=== PATIENT | male | born 2000 | race Two or more races ===

== ENCOUNTER 2020-06-04 15:08 | Emergency (ER) | payer MEDICAID ==
[~2020-06-04] VITALS: Ht 162.6 cm; Wt 79.4 kg
[2020-06-04] MEDS ORDERED: FAMOTIDINE 20 MG/2 ML ONE (15:41)
[2020-06-04] MEDS ORDERED: ONDANSETRON 2MG/ML, 2ML ONE (15:41)
--- NOTE | 2020-06-04 15:50 | NUR ---
PT C/O N/V, GENERALIZED ABD PAIN X 2 DAYS. NO MEDS TAKEN FOR SX. DENIES URINARY SX. LAST BM: TODAY. LAST ORAL INTAKE: LAST NOC.
[2020-06-04 15:52] LABS: BASOPHILS # (AUTO) 0.18 x10^3/uL (0-0.3); BASOPHILS % (AUTO) 1 % (0-1); EOSINOPHILS # (AUTO) 0.06 x10^3/uL (0-0.8); EOSINOPHILS % (AUTO) 0 % (1-7); LYMPHOCYTES # (AUTO) 1.61 x10^3/uL (1-6.1); LYMPHOCYTES % (AUTO) 11 % (22-44); MD NO; MEAN CORPUSCULAR HGB CONC 33.5 g/dL (33.2-36.2); MEAN CORPUSCULAR VOLUME 92.4 fL (81-97); MEAN PLATELET VOLUME 8.8 fL (7.4-10.4); MONOCYTES # (AUTO) 0.54 x10^3/uL (0-1.4); MONOCYTES % (AUTO) 4 % (2-9); NEUTROPHILS # (AUTO) 12.79 x10^3/uL (1.8-8.0); NEUTROPHILS % (AUTO) 84 % (42-75); PLATELET COUNT 289 x10^3/uL (130-400); RED BLOOD COUNT 5.51 x10^6/uL (4.38-5.82); RED CELL DISTRIBUTION WIDTH 13.3 % (9.4-14.8)
[2020-06-04] MEDS ORDERED: MORPHINE SULFATE 4 MG/ML, 1ML IVPush PRN (16:00)
[2020-06-04] MEDS ORDERED: SODIUM CHLORIDE 0.9% 1,000ML IVBOLUS ONE (16:00)
[2020-06-04] MEDS ORDERED: ONDANSETRON 2MG/ML, 2ML IVPush ONE (16:00)
[2020-06-04] MEDS ORDERED: FAMOTIDINE 20 MG/2 ML IV ONE (16:00)
[2020-06-04 16:01] LABS: ALANINE AMINOTRANSFERASE 26 U/L (12-78); ANION GAP 9 mmol/L (5-15); CALCIUM 10.3 mg/dL (8.5-10.1); CHLORIDE 108 mmol/L (98-107)
[2020-06-04 16:04] LABS: ALKALINE PHOSPHATASE 136 U/L (45-117); TOTAL PROTEIN 8.9 g/dL (6.4-8.2)
--- NOTE | 2020-06-04 16:07 | NUR ---
NS BOLUS HUNG, ZOFRAN AND PEPCID GIVEN PER EMAR. PT NOW RESTING QUIETLY, DRY HEAVING HAS STOPPED.
--- NOTE | 2020-06-04 16:18 | NUR ---
PT DOZING, EASILY AWAKENED. O2 SAT UPPER 80'S - 92. OXYGEN 1LNC APPLIED. O2 SAT INCREASED TO UPPER 90'S. SIDE RAILS UP X2, CALL LIGHT W/IN REACH.
--- NOTE | 2020-06-04 16:19 | NUR ---
GARRISON MCCOY AT BS. PT REPORTS "DISCOMFORT", DENIES PAIN.
[2020-06-04] MEDS ORDERED: OMNIPAQUE 350 MG/ML, 100ML BOTTLE ONE (17:04)
[2020-06-04] MEDS ORDERED: MORPHINE SULFATE 4 MG/ML, 1ML ONE (17:27)
--- NOTE | 2020-06-04 17:30 | NUR ---
TASK RN: PT RESTING ON GURNEY. VSS. PT STATES PAIN 10/10 IN ABDOMEN. PT MEDICATED PER JAN. UA COLLECTED, LABELED, AND SENT TO LAB.
--- NOTE | 2020-06-04 17:33 | NUR ---
TASK RN: PT MEDICATED FOR PAIN AND STARTED HAVING INCREASED VOMITING. ERP NOTIFIED. AWAITING NEW ORDERS.
[2020-06-04] MEDS ORDERED: METOCLOPRAMIDE 5 MG/ML, 2ML ONE (17:36)
[2020-06-04 17:40] LABS: MICROSCOPIC NOT IND
[2020-06-04] MEDS ORDERED: METOCLOPRAMIDE 5 MG/ML, 2ML IVPush ONE (18:00)
[2020-06-04 18:23] VITALS: BP 103/56
--- NOTE | 2020-06-04 18:23 | NUR ---
PT DOZING W/ SIDE RAILS UP X2; EASILY AWAKENED. DENIES PAIN, CURRENTLY.
== END 2020-06-04 19:02 | disposition home or self-care (01) ==
LOC: ED 18:50
DX: R11.2 Nausea with vomiting, unspecified (principal); R10.13 Epigastric pain; R10.30 Lower abdominal pain, unspecified; R10.31 Right lower quadrant pain
CPT/HCPCS: 36415; 74177; 80053; 81003; 83690; 85025; 96361; 96374; 96375; 99285; J2270; J2405; J2765; J3490; J7030; Q9967

== ENCOUNTER 2020-06-06 05:06 | Emergency (ER) | payer MEDICAID ==
[~2020-06-06] VITALS: Ht 162.6 cm; Wt 79.2 kg
--- NOTE | 2020-06-06 05:19 | NUR ---
PT REPORTS NAUSEA, AND VOMITING AND ABD PAIN X3 DAYS, SEEN IN ER 2 DAYS AGO. PT REPORTS ABD PAIN HAS WORSEN.
[2020-06-06] MEDS ORDERED: FAMOTIDINE 20 MG/2 ML IV ONE (05:30)
[2020-06-06] MEDS ORDERED: SODIUM CHLORIDE FLUSH 10ML SYR IVF ONE (05:30)
[2020-06-06] MEDS ORDERED: SODIUM CHLORIDE 0.9% 1,000ML IVBOLUS ONE (05:30)
[2020-06-06] MEDS ORDERED: ZIPRASIDONE 20 MG INJ IM ONE ×4 (05:30→07:03)
[2020-06-06] MEDS ORDERED: ONDANSETRON 2MG/ML, 2ML IVPush ONE (05:30)
[2020-06-06] MEDS ORDERED: FAMOTIDINE 20 MG/2 ML ONE (05:31)
[2020-06-06] MEDS ORDERED: ONDANSETRON 2MG/ML, 2ML ONE (05:31)
--- NOTE | 2020-06-06 05:46 | NUR ---
PT MEDICATED PER MAR.
[2020-06-06 06:01] LABS: MEAN CORPUSCULAR HGB CONC 33.2 g/dL (33.2-36.2); MEAN CORPUSCULAR VOLUME 93.3 fL (81-97); MEAN PLATELET VOLUME 8.4 fL (7.4-10.4); PLATELET COUNT 277 x10^3/uL (130-400); RED BLOOD COUNT 5.18 x10^6/uL (4.38-5.82); RED CELL DISTRIBUTION WIDTH 13.3 % (9.4-14.8)
[2020-06-06 06:23] LABS: ALANINE AMINOTRANSFERASE 21 U/L (12-78); ALBUMIN 4.5 g/dL (3.4-5.0); ALKALINE PHOSPHATASE 114 U/L (45-117); ANION GAP 10 mmol/L (5-15); BILIRUBIN,TOTAL 1.1 mg/dL (0.2-1.0); CALCIUM 9.2 mg/dL (8.5-10.1); CHLORIDE 107 mmol/L (98-107); CREATININE 0.93 mg/dL (0.7-1.3)
[2020-06-06 06:29] LABS: BASOPHILS # (AUTO) 0.03 x10^3/uL (0-0.3); BASOPHILS % (AUTO) 0 % (0-1); EOSINOPHILS # (AUTO) 0.02 x10^3/uL (0-0.8); EOSINOPHILS % (AUTO) 0 % (1-7); LYMPHOCYTES # (AUTO) 2.62 x10^3/uL (1-6.1); LYMPHOCYTES % (AUTO) 25 % (22-44); MD SCAN; MONOCYTES % (AUTO) 8 % (2-9); NEUTROPHILS # (AUTO) 6.83 x10^3/uL (1.8-8.0); NEUTROPHILS % (AUTO) 66 % (42-75)
--- NOTE | 2020-06-06 06:34 | NUR ---
PROVIDED WATER FOR PO CHALLENGE, PT ABLE TO TAKE A FEW SIPS OF NOW.
--- NOTE | 2020-06-06 06:51 | NUR ---
REPORT GIVEN TO CHERELLE DORADO.
--- NOTE | 2020-06-06 06:52 | NUR ---
REPORT FROM SAMANTHA
[2020-06-06 07:14] VITALS: BP 124/59
--- NOTE | 2020-06-06 07:19 | NUR ---
MEDICATED PER ORDERS, WILL REASSES SHORTLY. EDUCATED ON DC ORDERS. PT STILL CO ABDOMINAL PAIN
--- NOTE | 2020-06-06 07:43 | NUR ---
Patient/Caregiver given discharge instructions and they have confirmed that they understand the instructions. Patient ambulatory with steady gait.
== END 2020-06-06 07:45 | disposition home or self-care (01) ==
LOC: ED 06:01
DX: R11.2 Nausea with vomiting, unspecified (principal); R10.84 Generalized abdominal pain; R94.31 Abnormal electrocardiogram [ECG] [EKG]; J45.909 Unspecified asthma, uncomplicated; Z88.0 Allergy status to penicillin
CPT/HCPCS: 36415; 80053; 83690; 85025; 93005; 96361; 96372; 96374; 96375; 99284; J2405; J3486; J3490; J7030

== ENCOUNTER 2020-10-18 06:22 | Emergency (ER) | payer MEDICAID ==
[~2020-10-18] VITALS: Ht 162.6 cm; Wt 80.6 kg
[2020-10-18 06:57] LABS: BASOPHILS % (AUTO) 1 % (0-1); EOSINOPHILS % (AUTO) 1 % (1-7); LYMPHOCYTES % (AUTO) 26 % (22-44); MEAN CORPUSCULAR HEMOGLOBIN 31.7 pg (27.5-34.5); MEAN CORPUSCULAR HGB CONC 34.9 g/dL (33.2-36.2); MEAN PLATELET VOLUME 8.9 fL (7.4-10.4); MONOCYTES % (AUTO) 10 % (2-9); NEUTROPHILS % (AUTO) 64 % (42-75); PLATELET COUNT 247 x10^3/uL (130-400); RED BLOOD COUNT 5.15 x10^6/uL (4.38-5.82); RED CELL DISTRIBUTION WIDTH 13.3 % (9.4-14.8)
[2020-10-18] MEDS ORDERED: SODIUM CHLORIDE FLUSH 10ML SYR IVF ONE (07:00)
[2020-10-18] MEDS ORDERED: ONDANSETRON 2MG/ML, 2ML IVPush ONE (07:00)
[2020-10-18] MEDS ORDERED: MORPHINE SULFATE 4 MG/ML, 1ML IVPush PRN (07:00)
[2020-10-18] MEDS ORDERED: MORPHINE SULFATE 4 MG/ML, 1ML IVPush SCH (07:00)
[2020-10-18] MEDS ORDERED: FAMOTIDINE 20 MG/2 ML IV ONE (07:00)
[2020-10-18] MEDS ORDERED: SODIUM CHLORIDE 0.9% 1,000ML IVBOLUS ONE (07:00)
[2020-10-18 07:02] LABS: MD NO
[2020-10-18 07:07] LABS: ALANINE AMINOTRANSFERASE 21 U/L (12-78); ALBUMIN 4.6 g/dL (3.4-5.0); ANION GAP 11 mmol/L (5-15); CALCIUM 9.5 mg/dL (8.5-10.1); CHLORIDE 104 mmol/L (98-107); CREATININE 0.99 mg/dL (0.7-1.3)
[2020-10-18] MEDS ORDERED: MORPHINE SULFATE 4 MG/ML, 1ML ONE (07:07)
[2020-10-18] MEDS ORDERED: ONDANSETRON 2MG/ML, 2ML ONE (07:07)
--- NOTE | 2020-10-18 07:07 | NUR ---
report to jagjit morataya, care transferred at this time.
[2020-10-18] MEDS ORDERED: FAMOTIDINE 20 MG/2 ML ONE (07:08)
[2020-10-18 07:10] LABS: ALKALINE PHOSPHATASE 120 U/L (45-117); BILIRUBIN,TOTAL 0.9 mg/dL (0.2-1.0); TOTAL PROTEIN 8.3 g/dL (6.4-8.2)
--- NOTE | 2020-10-18 07:21 | NUR ---
SHIFT CHANGE REPORT RECEIVED. PT MEDICATED FOR PAIN PER ORDERS. PT PLACED ON MONITORS, VSS. PT AWARE NEEDS UA. CONT TO MONITOR.
--- NOTE | 2020-10-18 08:11 | NUR ---
RECEIVED REPORT FROM MICHEL DORADO, PLAN OF CARE DISCUSSED
[2020-10-18] MEDS ORDERED: HALOPERIDOL 5 MG/ML ONE (08:16)
--- NOTE | 2020-10-18 08:24 | NUR ---
PT CRYING C/O OF INCREASE PAIN AND NAUSEA. MEDICATED WITH HALDOL PER ORDERS, PT TOLERATED WELL. PT REQUESTS FLUIDS EXPLAINED NPO AT THIS TIME DUE TO NAUSEA.
[2020-10-18] MEDS ORDERED: HALOPERIDOL 5 MG/ML IM ONE (08:30)
--- NOTE | 2020-10-18 09:04 | NUR ---
GAVE PT SOME WATER
[2020-10-18 09:45] VITALS: BP 132/65
--- NOTE | 2020-10-18 09:45 | NUR ---
Patient/Caregiver given discharge instructions and they have confirmed that they understand the instructions. Patient ambulatory with steady gait.
== END 2020-10-18 09:46 | disposition home or self-care (01) ==
LOC: ED 08:54
DX: R10.84 Generalized abdominal pain (principal); R11.2 Nausea with vomiting, unspecified; J45.909 Unspecified asthma, uncomplicated
CPT/HCPCS: 36415; 80053; 83690; 85025; 96361; 96372; 96374; 96375; 99284; J1630; J2270; J2405; J7030